=== PATIENT | female | born 1960 | race Caucasian/White ===

== ENCOUNTER → 2016-09-09 | Outpatient (CLI) | payer OTHER ==
--- NOTE | 2016-09-09 10:37 | RADIOLOGY REPORT (SQ) ---
EXAM DESCRIPTION: SHOULDER LEFT 2 OR MORE VIEWS COMPLETED DATE/TIME: 09/09/2016 10:02 am REASON FOR STUDY: LEFT SHOULDER PAIN (M25.512) M54.12 RADICULOPATHY, CERVICAL REGION M25.512 PAIN IN LEFT SHOULDER M54.9 DORSALGIA, UNSPECIFIED COMPARISON: None. NUMBER OF VIEWS: Three views. TECHNIQUE: Internal rotation, external rotation, and Y view images acquired of the left shoulder. LIMITATIONS: None. FINDINGS: MINERALIZATION: Normal. BONES: No acute fracture or dislocation. No worrisome bone lesions. No significant osteophytes. GLENOHUMERAL JOINT: No significant findings. ACROMIOCLAVICULAR JOINT: No large osteophytes. SOFT TISSUES: No calcifications. VISUALIZED RIBS, SPINE, AND LUNG: No other significant finding. OTHER: No other significant finding. IMPRESSION: NEGATIVE STUDY OF THE LEFT SHOULDER. NO RADIOGRAPHIC EVIDENCE OF ACUTE INJURY. NO EXPLAN ATION FOR PAIN. TECHNICAL DOCUMENTATION: JOB ID: [id number] [employer]- All Rights Reserved
--- NOTE | 2016-09-09 10:38 | RADIOLOGY REPORT (SQ) ---
EXAM DESCRIPTION: CERV SP 4 OR 5 VIEWS COMPLETED DATE/TIME: 09/09/2016 10:02 am REASON FOR STUDY: CERVICAL RADICULOPATHY (M54.12), BACK PAIN (M54.9) M54.12 RADICULOPATHY, CERVICAL REGION M25.512 PAIN IN LEFT SHOULDER M54.9 DORSALGIA, UNSPECIFIED COMPARISON: None. NUMBER OF VIEWS: Five views. TECHNIQUE: AP, lateral, obliques and odontoid radiographic images acquired of the cervical spine. LIMITATIONS: None. FINDINGS: MINERALIZATION: Normal. ALIGNMENT: Anatomic. VERTEBRAE: Vertebral bodies of normal height. DISCS: No significant osteophytes or sclerosis. Disc height maintained. FORAMINA: No osteophytes or foraminal narrowing. LATERAL AND POSTERIOR ELEMENTS: Facets, lateral masses and spinous processes without significant find ings. HARDWARE: None in the spine. SOFT TISSUES: No masses or calcifications. Lung apices clear. OTHER: No other significant finding. IMPRESSION: NO SIGNIFICANT RADIOGRAPHIC FINDING IN THE CERVICAL SPINE. TECHNICAL DOCUMENTATION: JOB ID: [id number] [employer] All Rights Reserved
--- NOTE | 2016-09-09 10:38 | RADIOLOGY REPORT (SQ) ---
EXAM DESCRIPTION: T SPINE AP/LAT COMPLETED DATE/TIME: 09/09/2016 10:02 am REASON FOR STUDY: CERVICAL RADICULOPATHY (M54.12), BACK PAIN (M54.9) M54.12 RADICULOPATHY, CERVICAL REGION M25.512 PAIN IN LEFT SHOULDER M54.9 DORSALGIA, UNSPECIFIED COMPARISON: None. NUMBER OF VIEWS: Two views. TECHNIQUE: AP and lateral radiographic images acquired of the thoracic spine. LIMITATIONS: None. FINDINGS: MINERALIZATION: Normal. ALIGNMENT: Normal. No scoliosis. VERTEBRAE: No fracture or bone lesion. Maintained height, normal segmentation. DISCS: No significant loss of height or significant narrowing. No large osteophytes. HARDWARE: None in the spine. MEDIASTINUM AND SOFT TISSUES: Normal heart size and aortic contour. No soft tissue abnormality. VISUALIZED LUNG SKY: Clear. OTHER: No other significant finding. IMPRESSION: NO SIGNIFICANT RADIOGRAPHIC FINDING IN THE THORACIC SPINE. TECHNICAL DOCUMENTATION: JOB ID: [id number] 1948 [employer]- All Rights Reserved
== END ==
LOC: RAD 08:58
PROVIDERS: ATTEND Student in an Organized Health Care Education/Training Program
DX: M54.9 Dorsalgia, unspecified (principal); M54.12 Radiculopathy, cervical region; M25.512 Pain in left shoulder
CPT/HCPCS: 72050; 72070

== ENCOUNTER → 2016-10-01 | Outpatient (CLI) | payer OTHER ==
--- NOTE | 2016-10-01 14:35 | RADIOLOGY REPORT (SQ) ---
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 LIMITATIONS: None. FINDINGS: LOCALIZER: No worrisome findings. ALIGNMENT: Normal. VERTEBRAE: Intact. BONE MARROW: Mild multilevel fatty and sclerotic degenerative endplate changes. HARDWARE: None in the spine. CORD: Normal in size and signal intensity. SOFT TISSUES: No soft tissue masses. THORACIC DISCS T1-T12: There is minimal posterior disc bulging at T2-3, T3-4, T5-6, T7-8 without sign ificant central or foraminal encroachment. Small left paracentral disc protrusion at T8-9 mildly flattening the ventral thecal sac without signi ficant central or foraminal encroachment. This is best shown on axial T2 image 20, and sagittal imag e 9. The other thoracic disc levels are unremarkable aside from mild facet hypertrophy without high-grade foraminal narrowing. LOWER CERVICAL: Not well seen UPPER LUMBAR: Not included OTHER: No other significant finding. IMPRESSION: Small left paracentral disc protrusion at T8-9 without high-grade central or foraminal e ncroachment TECHNICAL DOCUMENTATION: JOB ID: [id number] [employer]- All Rights Reserved
== END ==
LOC: RAD 10:22
PROVIDERS: ATTEND Student in an Organized Health Care Education/Training Program
DX: M51.34 Other intervertebral disc degeneration, thoracic region (principal)
CPT/HCPCS: 72146

== ENCOUNTER → 2018-01-29 | Outpatient (CLI) | payer OTHER ==
--- NOTE | 2018-01-30 14:36 | RADIOLOGY REPORT (SQ) ---
EXAM DESCRIPTION: MRI RT UPPER JOINT WITHOUT COMPLETED DATE/TIME: 01/29/2018 11:22 am REASON FOR STUDY: CHRONIC GUSTAVO SHOULDER PAIN COMPARISON: None. TECHNIQUE: Right shoulder images acquired and stored on PACS. Multiplanar imaging to include fat sen sitive sequences such as T1, water sensitive sequences such as FST2/STIR, cartilage sensitive sequenc es such as FSPD/gradient-echo sequences. LIMITATIONS: None. FINDINGS: BONE MARROW AND CORTEX: No marrow signal abnormalities worrisome for occult fracture. Sub cortical cysts are present over the right humeral head greater tuberosity posteriorly JOINT OR BURSAL EFFUSION: No significant glenohumeral joint fluid. Trace fluid in the subacromial/falcon bdeltoid bursa. GLENO-HUMERAL ARTICULATION: Normal alignment. No significant chondromalacia ACROMION AND AC JOINT: Type 2 acromion with very bulky AC joint hypertrophy with synovial fluid and synovial thickening. There is narrowing of the subacromial space with trace fluid in the subacromial /subdeltoid bursa. ROTATOR CUFF AND INTERVAL: Diffuse high-grade tendinopathy is seen throughout the distal supra and in fraspinatus tendons adjacent to the greater tuberosity. Rotator interval grossly intact. subscapula ris intact. LABRUM AND BICEPS LABRAL COMPLEX: Diffuse tear throughout the superior labrum best shown on axial i mages 5-8. No paralabral cyst. Intra-articular long head biceps tendon is high in signal from tendi nopathy. REMAINDER OF LABRUM AND IGHL : No gross tear or paralabral cyst formation. Labral evaluation is less than optimal without joint distention. There is thickening of IGHL suggesting adhesive capsulitis. PERIARTICULAR AND ADJACENT SOFT TISSUES: No masses or abnormal nodes. OTHER: No other significant finding. IMPRESSION: Diffuse tendinopathy distal supra and infraspinatus tendons Bulky acromioclavicular joint hypertrophy with narrowing of the subacromial space and fluid in the falcon b acromial/subdeltoid bursa Diffuse superior labral tear with intra-articular long head biceps tendinopathy TECHNICAL DOCUMENTATION: JOB ID: [id number] [email or web address]- All Rights Reserved Reading location - IP/workstation name: [email or web address]
--- NOTE | 2018-01-30 14:40 | RADIOLOGY REPORT (SQ) ---
EXAM DESCRIPTION: MRI LT UPPER JOINT WITHOUT COMPLETED DATE/TIME: 01/29/2018 11:22 am REASON FOR STUDY: CHRONIC GUSTAVO SHOULDER PAIN COMPARISON: None. TECHNIQUE: Left shoulder images acquired and stored on PACS. Multiplanar imaging to include fat sens itive sequences such as T1, water sensitive sequences such as FST2/STIR, cartilage sensitive sequence s such as FSPD/gradient-echo sequences. LIMITATIONS: None. FINDINGS: BONE MARROW AND CORTEX: No marrow signal abnormalities worrisome for occult fracture. JOINT OR BURSAL EFFUSION: No significant glenohumeral joint fluid. Trace fluid in the subacromial/falcon bdeltoid bursa. GLENO-HUMERAL ARTICULATION: Normal alignment. No significant chondromalacia ACROMION AND AC JOINT: Type 2 acromion with mild AC joint hypertrophy with bony spurring and edema i n the acromion and distal clavicle. There is narrowing of the subacromial space with trace fluid in the subacromial/subdeltoid bursa. ROTATOR CUFF AND INTERVAL: Distal supraspinatus tendinopathy. Partial thickness undersurface tear di stal infraspinatus tendon with moderate tendinopathy present, best shown on sagittal images 7-10. Falcon bscapularis intact. LABRUM AND BICEPS LABRAL COMPLEX: Diffuse tear throughout the superior labrum best shown on axial im ages 5-8. No paralabral cyst. Intra-articular long head biceps tendon is high in signal from tendin opathy. REMAINDER OF LABRUM AND IGHL : No gross tear or paralabral cyst formation. Labral evaluation is less than optimal without joint distention. There is thickening of IGHL suggesting adhesive capsulitis. PERIARTICULAR AND ADJACENT SOFT TISSUES: No masses or abnormal nodes. OTHER: No other significant finding. IMPRESSION: Supra and infraspinatus tendinopathy with partial thickness undersurface tear distal inf raspinatus tendon Intra-articular long head biceps tendinopathy with superior labral tear AC joint arthropathy with narrowing of the subacromial space and trace fluid in the subacromial/subde ltoid bursa TECHNICAL DOCUMENTATION: JOB ID: [id number] [employer]- All Rights Reserved Reading location - IP/workstation name: [email or web address]
== END ==
LOC: RAD 09:56
PROVIDERS: ATTEND Student in an Organized Health Care Education/Training Program
DX: M25.512 Pain in left shoulder (principal); M25.511 Pain in right shoulder; M75.112 Incomplete rotator cuff tear or rupture of left shoulder, not specified as traumatic

== ENCOUNTER → 2019-02-16 | Outpatient (CLI) | payer OTHER ==
--- NOTE | 2019-02-16 14:40 | WOMENS IMAGING REPORT ---
EXAM DESCRIPTION: BILAT SCREENING MAMMO W/CAD COMPLETED DATE/TIME: 02/16/2019 1:41 pm REASON FOR STUDY: Z12.31 ENCOUNTER FOR SCREENING MAMMOGRAM FOR MALIGNANT NEOPLASM OF BREAST Z12.31 ENCNTR SCREEN MAMMOGRAM FOR MALIGNANT NEOPLASM OF AJYA Z90.722 ACQUIRED ABSENCE OF OVARIES, BILATERAL COMPARISON: 2010, 2014 EXAM PARAMETERS: Standard craniocaudal and mediolateral oblique views of each breast recorded using digital acquisition. Read with the assistance of CAD. .FORMERLY [facility] - [employer] Version 9.2 LIMITATIONS: None. FINDINGS: No suspicious masses, suspicious calcifications or architectural distortion. No areas of c oncern. IMPRESSION: Negative MAMMOGRAM. BIRADS 1 BREAST DENSITY: b. There are scattered areas of fibroglandular density. BIRAD: ASSESSMENT: 1 NEGATIVE RECOMMENDATION: ROUTINE SCREENING COMMENT: The patient has been notified of the results by letter per MQSA requirements. Additional no tification policies are in place for contacting patient with suspicious or incomplete findings. Quality ID #225: The [employer] recommends an annual screening mammogram for women aged 40 years or over. This facility utilizes a reminder system to ensure that all patients receive reminder letters, and/or direct phone calls for appointments. This includes reminders for routine scr eening mammograms, diagnostic mammograms, or other Breast Imaging Interventions when appropriate. Th is patient will be placed in the appropriate reminder system. TECHNICAL DOCUMENTATION: FINDING NUMBER: (1) ASSESSMENT: (1) JOB ID: [id number] [employer]- All Rights Reserved Reading location - IP/workstation name: [email or web address]
--- NOTE | 2019-02-16 14:42 | WOMENS IMAGING REPORT ---
EXAM DESCRIPTION: TRANSVAGINAL ULTRASOUND COMPLETED DATE/TIME: 02/16/2019 1:51 pm REASON FOR STUDY: Z90.722 ACQUIRED ABSENCE OF OVARIES, BILATERAL Z12.31 ENCNTR SCREEN MAMMOGRAM FOR MALIGNANT NEOPLASM OF AJAY Z90.722 ACQUIRED ABSENCE OF OVARIES, BILATERAL COMPARISON: None. TECHNIQUE: Dynamic and static grayscale images acquired of the pelvis via transvaginal approach and recorded on PACS. Additional selected color Doppler and spectral images recorded. LIMITATIONS: None. FINDINGS: No uterine or ovarian tissue identified. No adnexal masses or free fluid. IMPRESSION: Negative. TECHNICAL DOCUMENTATION: JOB ID: [id number] [employer]- All Rights Reserved Rev Reading location - IP/workstation name: [email or web address]
== END ==
LOC: WI 13:29
PROVIDERS: ATTEND Physician Assistant
DX: Z12.31 Encounter for screening mammogram for malignant neoplasm of breast (principal); R61 Generalized hyperhidrosis; Z90.722 Acquired absence of ovaries, bilateral
CPT/HCPCS: 76830; 77067

== ENCOUNTER 2019-09-21 08:14 | Day surgery (SDC) | payer OTHER ==
[~2019-09-21 08:14] MED LIST: CHONDR SU A NA/HYALUR INTRAOC KIT (SURGICARE) ONE; DORZOLAMIDE HCL 2%/TIMOLOL MALEAT 0.5% OPH SOLN 10 ML OD PRN; KETOROLAC TROMETHAMINE 0.45% 4 DROP/0.4 ML DROPERETTE OD PRN
[2019-09-21] MEDS ORDERED: TRYPAN BLUE 0.06 % OPH SOLN 0.5 ML DISP.SYRIN ONE (09:36)
[2019-09-21] MEDS: BESIFLOXACIN HCL 0.6% OPH SUSP 5 ML BOTTLE OD PRN ×3 (10:05→11:01)
[2019-09-21] MEDS: CYCLOPENTOLATE 0.2%/PHENYLEPHRINE 1% OPH SOLN 2 ML OD PRN ×3 (10:05→10:25)
[2019-09-21] MEDS: TETRACAINE HCL 0.5% OPH SOLN 4 ML OD PRN ×3 (10:05→10:39)
[2019-09-21] MEDS: TROPICAMIDE 1% OPH SOLN 15 ML OD PRN ×3 (10:05→10:25)
[2019-09-21] MEDS ORDERED: MIDAZOLAM 2 MG/2 ML INJ ONE (10:25)
[2019-09-21] MEDS ORDERED: FENTANYL CITRATE INJ/PF 100 MCG/2 ML AMPUL ONE (10:25)
--- NOTE | 2019-09-21 11:58 | Operative Report ---
Operative Report-[facility] Operative Report: DATE OF SURGERY: 09/21/2019 PREOPERATIVE DIAGNOSIS: Cataract, right eye POSTOPERATIVE DIAGNOSIS: Cataract, right eye OPERATION: Cataract extraction with insertion of an IOL of the right eye. Intraocular Lens Model: [20.5 sn60wf] For surgery was difficulty with driving at night SURGEON: Johnathan Isidro MD ANESTHESIA: Topical PROCEDURE: After obtaining appropriate consent, the patient's right eye was prepped and draped in a sterile fashion as well as the surgeon in the sterile manner and cataract surgery was started. First a paracentesis blade was used to make a side-port incision. Viscoelastic was used to inflate the anterior chamber. Next a 2.4 mm incision was made with a 2.4 mm blade, clear corneal temporarily. A continuous capsulorrhexis was made using a cystotome and Utrata forceps. Following this hydrodissection was carried out to make the lj fully loose and mobile and it was rotated. Following this, a divide and conquer technique was used to phacoemulsify the lj. The remaining cortex was removed with an irrigation/aspiration. Provisc was instilled into the capsular bag to inflate the bag. The intraocular lens was placed. The remaining viscoelastic material was removed with irrigation/aspiration. Following this, the incision was found to be watertight. Besivance and Cosopt was instilled into the eye and a protective shield was placed over the eye. The patient was reurned to the postoperative recovery in a stable condition.
[2019-09-21] MEDS ORDERED: LIDOCAINE 1%/PHENYLEPHRINE 1.5% 1 ML VIAL ONE (15:09)
[2019-09-21] MEDS ORDERED: EPINEPHRINE INJ/PF 1 MG/1 ML AMPULE ONE (15:09)
== END 2019-09-21 11:50 | disposition home or self-care (01) ==
LOC: SC 08:14
PROVIDERS: ATTEND Internal Medicine
DX: H25.89 Other age-related cataract (principal); H04.123 Dry eye syndrome of bilateral lacrimal glands; M47.892 Other spondylosis, cervical region; E11.9 Type 2 diabetes mellitus without complications; M19.012 Primary osteoarthritis, left shoulder; M19.011 Primary osteoarthritis, right shoulder; Z87.891 Personal history of nicotine dependence; Z79.899 Other long term (current) drug therapy; Z88.8 Allergy status to other drugs, medicaments and biological substances
CPT/HCPCS: 66984; 82962; V2632; J2250; J3490 ×2; J0171; J3010; 142

== ENCOUNTER 2019-10-19 07:58 | Day surgery (SDC) | payer OTHER ==
[~2019-10-19 07:58] MED LIST changes: -CHONDR SU A NA/HYALUR INTRAOC KIT (SURGICARE) ONE; -DORZOLAMIDE HCL 2%/TIMOLOL MALEAT 0.5% OPH SOLN 10 ML OD PRN; -KETOROLAC TROMETHAMINE 0.45% 4 DROP/0.4 ML DROPERETTE OD PRN; +KETOROLAC TROMETHAMINE 0.45% 4 DROP/0.4 ML DROPERETTE OS PRN
[2019-10-19] MEDS ORDERED: FENTANYL CITRATE INJ/PF 100 MCG/2 ML AMPUL ONE (08:00)
[2019-10-19] MEDS ORDERED: MIDAZOLAM 2 MG/2 ML INJ ONE (08:00)
[2019-10-19] MEDS ORDERED: ONDANSETRON HCL INJ/PF 4 MG/2 ML SDV ONE (08:00)
[2019-10-19] MEDS: TETRACAINE HCL 0.5% OPH SOLN 4 ML OS PRN ×3 (08:32→09:00)
[2019-10-19] MEDS: TROPICAMIDE 1% OPH SOLN 15 ML OS PRN ×3 (08:32→08:53)
[2019-10-19] MEDS: BESIFLOXACIN HCL 0.6% OPH SUSP 5 ML BOTTLE OS PRN ×4 (08:33→09:21)
[2019-10-19] MEDS: CYCLOPENTOLATE 0.2%/PHENYLEPHRINE 1% OPH SOLN 2 ML OS PRN ×3 (08:33→08:53)
[2019-10-19] MEDS: CHONDR SU A NA/HYALUR INTRAOC KIT (SURGICARE) ONE ×2 (09:13)
[2019-10-19] MEDS: EPINEPHRINE INJ/PF 1 MG/1 ML AMPULE ONE ×2 (09:13)
[2019-10-19] MEDS: LIDOCAINE 1% INJ-PF (10 MG/ML) 30 ML SDV ONE ×2 (09:13)
[2019-10-19] MEDS: DORZOLAMIDE HCL 2%/TIMOLOL MALEAT 0.5% OPH SOLN 10 ML OS PRN ×2 (09:21)
--- NOTE | 2019-10-19 12:19 | Operative Report ---
Operative Report-[facility] Operative Report: DATE OF SURGERY: 10/19/19 PREOPERATIVE DIAGNOSIS: Cataracts, left eye POSTOPERATIVE DIAGNOSIS: Cataract, left eye OPERATION: Cataract extraction with insertion of an IOL of the left eye. Intraocular Lens Model: [20.0 sn60wf] Reason for surgery is difficulty seeing small print SURGEON: Johnathan Isidro MD ANESTHESIA: Topical PROCEDURE: After obtaining appropriate consent, the patient's left eye was prepped and draped in a sterile fashion as well as the surgeon in the sterile manner and cataract surgery was started. First a paracentesis blade was used to make a side-port incision. Viscoelastic was used to inflate the anterior chamber. Next a 2.4 mm incision was made with a 2.4 mm blade, clear corneal temporarily. A continuous capsulorrhexis was made using a cystotome and Utrata forceps. Following this hydrodissection was carried out to make the lens fully loose and mobile and it was rotated 90 degrees. Following this, a divide and conquer technique was used to phacoemulsify the lens. The remaining cortex was removed with an irrigation/aspiration. Provisc was instilled into the capsular bag to inflate the bag.The intraocular lens was placed. The remaining viscoelastic material was removed with irrigation/aspiration. Following this, the incision was found to be watertight. Besivance and Cosopt was instilled into the eye and a protective shield was placed over the eye. The patient was returned to the postoperative recovery in a stable condition.
== END 2019-10-19 09:53 | disposition home or self-care (01) ==
LOC: SC 07:58
PROVIDERS: ATTEND Internal Medicine
DX: H25.89 Other age-related cataract (principal); Z96.1 Presence of intraocular lens; E11.9 Type 2 diabetes mellitus without complications; Z87.891 Personal history of nicotine dependence; Z88.8 Allergy status to other drugs, medicaments and biological substances; Z79.899 Other long term (current) drug therapy; M79.7 Fibromyalgia
CPT/HCPCS: 66984; 82962; V2632; J2250; J3490 ×3; J0171; J3010; J2405